=== PATIENT | female | born 1955 | race Caucasian/White ===

== ENCOUNTER 2017-07-20 08:31 | Emergency (ER) | payer OTHER | END 2017-07-20 10:26 | disposition home or self-care (01) | LOC: FTE 08:31 | DX: J06.9 Acute upper respiratory infection, unspecified (principal); I10 Essential (primary) hypertension; F17.210 Nicotine dependence, cigarettes, uncomplicated | CPT/HCPCS: 71045; 99283-25 ==

== ENCOUNTER 2018-03-08 05:23 | Emergency (ER) | payer OTHER | END 2018-03-08 07:05 | disposition home or self-care (01) | LOC: E/R 05:23 | DX: R04.0 Epistaxis (principal); I10 Essential (primary) hypertension; F17.210 Nicotine dependence, cigarettes, uncomplicated | CPT/HCPCS: 99282; Z7502 ==

== ENCOUNTER 2018-03-08 09:06 | Emergency (ER) | payer OTHER ==
[2018-03-08] MEDS: ACETAMINOPHEN 325 MG TAB PO (11:04)
[2018-03-08] MEDS: LORAZEPAM 0.5 MG TAB PO (11:04)
[2018-03-08] MEDS: OXYMETAZOLINE 0.05% 15 ML NAS SPRAY NASAL (11:04)
== END 2018-03-08 11:22 | disposition home or self-care (01) ==
LOC: FTE 09:06
DX: R04.0 Epistaxis (principal); I10 Essential (primary) hypertension; Z87.891 Personal history of nicotine dependence
CPT/HCPCS: 30901; 99283-25

== ENCOUNTER 2018-03-08 17:53 | Emergency (ER) | payer OTHER ==
[2018-03-08 22:54] LABS: ADD MAN DIFF? NO
[2018-03-08 22:56] LABS: WHITE BLOOD COUNT 9.1 10^3/ul (4.8-10.8)
[2018-03-08 22:56] LABS: BASOPHIL # 0.1 10^3/ul (0.0-0.1); BASOPHILS % 0.8 % (0.0-2.0); EOSINOPHILS # 0.1 10^3/ul (0.0-0.5); EOSINOPHILS % 0.8 % (0.0-7.0); HEMATOCRIT 39.9 % (37.0-47.0); HEMOGLOBIN 13.4 g/dl (12.0-16.0); LYMPHOCYTES # 2.1 10^3/ul (0.8-2.9); LYMPHOCYTES % 23.4 % (15.0-51.0); MEAN CORPUSCULAR HEMOGLOBIN 32.4 pg (29.0-33.0); MEAN CORPUSCULAR HGB CONC 33.6 g/dl (32.0-37.0); MEAN CORPUSCULAR VOLUME 96.4 fl (82.0-101.0); MEAN PLATELET VOLUME 10.9 fl (7.4-10.4); MONOCYTE # 1.1 10^3/ul (0.3-0.9); MONOCYTES % 11.7 % (0.0-11.0); NEUTROPHIL # 5.8 10^3/ul (1.6-7.5); NEUTROPHILS % 63.1 % (39.0-77.0); PLATELET COUNT 271 10^3/UL (140-415); RED BLOOD COUNT 4.14 10^6/ul (4.20-5.40); RED CELL DISTRIBUTION WIDTH 15.1 % (11.5-14.5)
[2018-03-08] MEDS: OXYMETAZOLINE 0.05% 15 ML NAS SPRAY NASAL (23:22)
[2018-03-08] MEDS: LORAZEPAM 2 MG INJ IV (23:22)
[2018-03-08] MEDS: SOD CHLORIDE 0.9% IVPB (23:23)
[2018-03-08] MEDS: DESMOPRESSIN IVPB (23:23)
[2018-03-08 23:25] LABS: INR 0.88; PT RATIO 0.9
[2018-03-08 23:26] LABS: PARTIAL THROMBOPLASTIN TIME 25.8 Sec (23.0-35.0)
== END 2018-03-09 01:08 | disposition home or self-care (01) ==
LOC: E/R 03-09 01:08
DX: R04.0 Epistaxis (principal); I10 Essential (primary) hypertension; Z87.891 Personal history of nicotine dependence; Z79.82 Long term (current) use of aspirin
CPT/HCPCS: 30903; 85025; 85610; 85730; 96374; 96375; 99284-25